=== PATIENT | male | born 1970 | race Caucasian/White ===

== ENCOUNTER 2016-08-01 16:24 | Emergency (ER) | payer SELFPAY ==
--- NOTE | 2016-08-01 16:29 | EDPHY ---
H & P Time Seen by Provider: 08/01/16 16:29 HPI/ROS: CHIEF COMPLAINT: Bleeding varicose vein on left ankle HISTORY OF PRESENT ILLNESS: Patient has a history of varicose veins and is visiting from [place]. He had a bleeding episode last night which stopped spontaneously. 30 minutes prior to arrival he had a traumatic bleeding again from the left ankle at the site of a varicose vein which he was unable to get stopped. EMS arrived and applied a pressure dressing which controlled the bleeding and brought the patient to the emergency department for further evaluation. REVIEW OF SYSTEMS: Eye: no change in vision ENT: no sore throat Cardiac: no chest pain or syncope Pulmonary: Little bit of a cough recently but no hemoptysis and not short of breath. Abdomen: no vomiting, diarrhea, abdominal pain. Chronic periumbilical hernia. Musculoskeletal: no back pain Skin: Chronic venous stasis changes in the left leg. Neuro: no headache Constitutional: no fever : no urinary symptoms A comprehensive 10 point review of systems is otherwise negative aside from elements mentioned in the history of present illness. PAST MEDICAL HISTORY: Includes atrial fibrillation, not anticoagulated. Denies , hypertension, umbilical hernia. Social history: Visiting from [place], occasional smoker. General Appearance: Alert and conversant, cooperative. Eyes: No scleral icterus. ENT, Mouth: Normal mucous membranes. Respiratory: Normal respiratory effort, breath sounds equal, lungs are clear to auscultation. Cardiovascular: Irregular, not tachycardic Gastrointestinal: Abdomen is soft and non tender. Umbilical hernia which is soft and easily reducible. Neurological: Alert and oriented x3. Normally conversant. Face symmetric, normal movement and sensation in all extremities. Skin: Venous stasis changes both lower extremities with a bleeding varicose vein on the left medial ankle. Musculoskeletal: Bilateral pedal edema which apparently is chronic. Psychiatric: Not agitated. Emergency Department course/MDM: Procedure: Bleeding varicose vein suturing Verbal consent was obtained from the patient. The bleeding site on the left ankle was anesthetized using 1% lidocaine without epinephrine. Site was cleaned prior with standard sterile technique and ChloraPrep. There were no deep structures involved. No tendon injury was identified. No foreign body found. The wound was repaired with [id number] 4 0 Prolene. The wound repair was simple. Excellent hemostasis was obtained. Wound care instructions were discussed and the patient was warned regarding scarring. The procedure was performed by myself. Tetanus updated. Constitutional: Initial Vital Signs Temperature (C) 36.7 C 08/01/16 16:24 Heart Rate 84 08/01/16 16:24 Respiratory Rate 20 08/01/16 16:24 Blood Pressure 140/101 H 08/01/16 16:24 O2 Sat (%) 93 08/01/16 16:24 O2 Delivery Mode Room Air Allergies/Adverse Reactions: Sulfa (Sulfonamide Antibiotics) Allergy (Verified 08/01/16 16:50) Home Medications: Medication Instructions Recorded Digoxin 08/01/16 Insulin Lispro 08/01/16 Lisinopril 08/01/16 Metoprolol Tartrate 08/01/16 SIMVASTATIN 08/01/16 metFORMIN HCL 08/01/16 Medical Decision Making - Data Points Medications Given: Discontinued Medications Diphtheria/Tetanus/Acell Pertussis (Boostrix) 0.5 ml IM .ONCE ONE Stop: 08/01/16 16:48 Last Admin: 08/01/16 16:57 Dose: 0.5 ml Departure - Departure Disposition: Home, Routine, Self-Care Clinical Impression: Bleeding from varicose vein Condition: Good Instructions: Laceration (ED) Additional Instructions: Wound Care Follow-Up: Removal of sutures in 10-14 days. Suture removal is complimentary in uncomplicated cases. Infection or abnormal findings would require reevaluation by the MD. In that case, you may be billed. Referrals: Irena Caraballo MD [Medical Doctor] - As per Instructions
[2016-08-01] MEDS ORDERED: TDAP ADULT 0.5 ML INJ (BOOSTRIX) IM ONE (16:47)
[2016-08-01 16:50] VITALS: BP 140/101; PULSE 84; RESP 20; TEMP 98.1; O2SAT 93
== END 2016-08-11 08:58 | disposition home or self-care (01) ==
PROC: 0HQLXZZ Repair Left Lower Leg Skin, External Approach (ICD-10-PCS; principal; 2016-08-01)
DX: I83.892 Varicose veins of left lower extremity with other complications (principal); Z23 Encounter for immunization; Z79.4 Long term (current) use of insulin

== ENCOUNTER 2017-11-26 06:00 | Day surgery (SDC) | payer MEDICAID ==
[2017-11-26] MEDS ORDERED: BENZOCAINE UNIT DOSE SPRAY HURRICAINE MM ONE (06:08)
[2017-11-26] MEDS ORDERED: MIDAZOLAM 2 MG/2 ML VIAL IVP ONE (06:08)
[2017-11-26] MEDS ORDERED: NS 500 ML IV ONE (06:08)
[2017-11-26] MEDS ORDERED: fentaNYL 100 MCG/2 ML INJ IVP ONE (06:08)
--- NOTE | 2017-11-26 07:31 | PDANEPAE ---
ANE Past Medical History - Pulmonary History Hx Oxygen in Use at Home: No Hx Sleep Apnea: No - Endocrine History Hx Diabetes: Yes ANE Review of Systems Review of Systems: ANE Patient History - Allergies Allergies/Adverse Reactions: Sulfa (Sulfonamide Antibiotics) Allergy (Verified 08/01/16 16:50) - Home Medications Home Medications: Digoxin 08/01/16 [Last Taken Unknown] Insulin Lispro 08/01/16 [Last Taken Unknown] Lisinopril 08/01/16 [Last Taken Unknown] Metoprolol Tartrate 08/01/16 [Last Taken Unknown] SIMVASTATIN 08/01/16 [Last Taken Unknown] metFORMIN HCL 08/01/16 [Last Taken Unknown] - Smoking Hx Smoking Status: Current every day smoker ANE Labs/Vital Signs - Vital Signs Height: 173 cm Weight: 127 kg ANE Physical Exam - Airway Neck exam: decreased ROM Mallampati Score: Class 3 Mouth exam: poor dentition - Pulmonary Pulmonary: no respiratory distress - Cardiovascular Cardiovascular: regular rate and rhythym - ASA Status ASA Status: III ANE Anesthesia Plan Total IV Anesthesia: Yes
[2017-11-26] MEDS ORDERED: PROPOFOL/EMULSION 500 MG/50 ML BOTTLE IV ONE (07:33)
[2017-11-26] MEDS ORDERED: LIDOCAINE 2% 100 MG/5 ML SYR ONE (07:34)
[2017-11-26] MEDS ORDERED: ATROPINE SULFATE 1 MG/10 ML SYR ONE (08:06)
--- NOTE | 2017-11-26 08:25 | PDHPUP ---
History & Physical Update H&P update statement: This history and physical update is based on an assessment of the patient which was completed after admission or registration (within 24 hours), but prior to the surgery/procedure. H&P update: H&P reviewed & patient examined, no change in patient's condition since H&P completed (I reviewed Dr. Palm's office note dated 11/04/2017)
[2017-11-26] MEDS ORDERED: PERFLUTREN LIPID MICROSPHERES 1.1 MG/ML VIAL IV ONE (08:44)
[2017-11-26] MEDS ORDERED: NALOXONE HCL 0.4 MG/ML INJ IVP PRN (09:07)
[2017-11-26] MEDS ORDERED: ALBUTEROL 3 ML DEYVIAL IH PRN (09:07)
--- NOTE | 2017-11-26 09:07 | POSTANESTH ---
Post Anesthetic Evaluation Cardiovascular Status: Similar to Pre-Op Cond Respiratory Status: Similar to Pre-op Cond. Level of Consciousness/Mental Status: Mildly Sleepy, Arousable Pain Control: Adequate, Prn Tx Ordered Nausea/Vomiting Control: Adequate, Prn Tx Ordered Complications Possibly Related to Anesthesia: None Noted
--- NOTE | 2017-11-26 16:48 | ECHO ---
[email or web address] [address] [address] Main: [phone] Fax: Transesophageal Echocardiography Name: TRACY CAMACHO MR#: [id number] Study Date: 11/26/2017 Study Time: 06:04 AM Date of : 1970 Age: 47 year(s) Height: ( ) Weight: ( ) BSA: Gender: Male Examination: DIANA Indication: Pre Watchman Procedure Image Quality: Adequate Contrast: Requested by: Kimberly Fernandez Heart Rate: Rhythm: BP: 132 mmHg/69 mmHg Procedure Staff Pen And Pencil Repairer: Niurka Salamanca [facility] Reading Physician: Kimberly Fernandez MD Requesting Provider: Anibal Palm DIANA Exam Details Patient Consent: Risks, alternatives of procedure explained to patient, informed consent obtained. Conclusions: Normal size left ventricle. Moderately reduced systolic LV function. The ejection fraction is estimated to be 35-40 %. Normal size right ventricle. Normal RV function. An agitated saline study was performed and was negative for intracardiac shunting. No thrombus in left appendage. Definity used to assess ROSEANN for thrombus. At 0 degrees the appendage measures 1.65 cm by 2.39 cm. At 46 degrees the appendage measures 1.86 cm by 1.42 cm. At 87 degrees the appendage measures 1.42 cm by 2.91 cm. At 134 degrees the appendage measures 1.51 cm by 2.08 cm. At 131 degrees the appendage measures 2.42 cm by 2.58 cm. At 112 degrees the appendage measures 1.54 cm by 2.63 cm. Mild mitral valve regurgitation is present. The aortic valve is normal in appearance and function. Tracy Telles has an elevated CHADS2-VASC score of 4 and is a poor candidate for residential anticoagulation therapy due to bleeding labile INRs and inability to afford NOAC therapy. He will be referred for a Watchman device in the [facility] structural heart clinic Measurements: Chambers Valvular Assessment AV/MV Valvular Assessment TV/PV Normal Normal Normal Name Value Range Name Value Range Name Value Range Patient: TRACY CAMACHO Study Date: 11/26/2017 Page 1 of 2 06:04 AM EF Range: 35-40 % Additional Measurements: Findings: Left Ventricle: Normal size left ventricle. No LV hypertrophy. Moderately reduced systolic LV function. The ejection fraction is estimated to be 35-40 %. No regional wall motion abnormality. Unable to assess diastolic dysfunction. Right Ventricle: Normal size right ventricle. Normal RV function. Left Atrium: The left atrium is normal in size. An agitated saline study was performed and was negative for intracardiac shunting. Left Atrial Appendage: Good color flow doppler in the left atrial appendage. No thrombus in left appendage. Definity used to assess ROSEANN for thrombus. At 0 degrees the appendage measures 1.65 cm by 2.39 cm. At 46 degrees the appendage measures 1.86 cm by 1.42 cm. At 87 degrees the appendage measures 1.42 cm by 2.91 cm. At 134 degrees the appendage measures 1.51 cm by 2.08 cm. At 131 degrees the appendage measures 2.42 cm by 2.58 cm. At 112 degrees the appendage measures 1.54 cm by 2.63 cm. Right Atrium: The right atrium is normal in size. Mitral Valve: The mitral valve is normal in appearance and function. Mild mitral valve regurgitation is present. No mitral stenosis is present. Aortic Valve: The aortic valve is normal in appearance and function. There is no significant aortic valve regurgitation. No aortic valve stenosis is present. Tricuspid Valve: The tricuspid valve is normal in appearance and function. Trivial tricuspid valve regurgitation. Pulmonic Valve: The pulmonic valve is normal in appearance and function. There is no pulmonic regurgitation seen. Aorta: The aorta is normal. Pericardium: No pericardial effusion. No pleural effusion. l1n (No Signature Object) Patient: TRACY CAMACHO Study Date: 11/26/2017 Page 2 of 2 06:04 AM [id number]
== END 2017-11-26 10:07 | disposition home or self-care (01) ==
LOC: FCATH 06:00
PROVIDERS: ATTEND Internal Medicine Cardiovascular Disease
DX: I48.91 Unspecified atrial fibrillation (principal); I10 Essential (primary) hypertension; G45.9 Transient cerebral ischemic attack, unspecified; E11.9 Type 2 diabetes mellitus without complications
CPT/HCPCS: J0461; J2001; J2704; J3010; Q9957

== ENCOUNTER 2018-04-06 00:12 | Emergency (ER) | payer MEDICAID ==
--- NOTE | 2018-04-06 00:16 | EDPHY ---
H & P Time Seen by Provider: 04/06/18 00:14 HPI/ROS: HPI CHIEF COMPLAINT: Bleeding from left ankle after kicking a vacuum HISTORY OF PRESENT ILLNESS: 47-year-old male, history of diabetes, obesity, varicose veins, presents emergency room with bleeding from his left lower extremity after kicked a vacuum. He states he got very frustrated and kicked it as it was not working. This caused him to have some bleeding from his medial ankle left lower extremity. Patient has a history of AFib, he refuses to take anticoagulation, patient is not on any blood thinners. Does take daily full-dose aspirin. Past Medical History: Diabetes, hypertension, varicose veins, obesity, AFib not on anticoagulation Past Surgical History: No recent surgery Social History: lives locally. Denies drugs alcohol tobacco. Family History: Noncontributory ROS REVIEW OF SYSTEMS: 10 Systems were reviewed and negative with the exception of the elements mentioned in the history of present illness. Exam Constitutional triage nursing summary reviewed, vital signs reviewed, awake/ alert. Eyes normal conjunctivae and sclera, EOMI, PERRLA. HENT normal inspection, atraumatic, moist mucus membranes, no epistaxis, neck supple/ no meningismus, no raccoon eyes. Respiratory clear to auscultation bilaterally, normal breath sounds, no respiratory distress, no wheezing. Cardiovascular rate normal, regular rhythm, no murmur, no edema, distal pulses normal. Gastrointestinal soft, non-tender, no rebound, no guarding, normal bowel sounds, no distension, no pulsatile mass. Genitourinary no CVA tenderness. Musculoskeletal left lower extremity: Chronic venous stasis large extremities, extensive venous stasis and varicose veins bilaterally, chronic pitting edema, chronic edema. no midline vertebral tenderness, full range of motion, no calf swelling, no tenderness of extremities, no meningismus, good pulses, neurovascularly intact. Skin pink, warm, & dry, no rash, skin atraumatic. Neurologic awake, alert and oriented x 3, AAOx3, moves all 4 extremities equally, motor intact, sensory intact, CN II-XII intact, normal cerebellar, normal vision, normal speech. Psychiatric normal mood/affect. Heme/Lymph/Immune no lymphadenopathy. Differential Diagnosis: Includes but is not limited to in a particular order bleeding from varicose vein, laceration with arterial injury. Medical Decision Making: Plan for this patient takedown dressing that was placed by EMS and explore the wound. Re-evaluation: Left leg: Medial aspect, very small punctate with a bleeding varicose vein. Direct pressure was applied however this did not stop the bleeding. Venous bleeding only. Surgicel was applied and direct pressure. Will re-evaluate shortly. 0141: Surgicel was applied to this lesion. Good hemostasis. No further bleeding. He has been monitored for over an hour after good hemostasis with no further breathing. Recommend rest and stays in place the next 24 hr. Patient understands return emergency room if he has recurrence of bleeding. Source: Patient, EMS - Medical/Surgical History Hx Asthma: No Hx Chronic Respiratory Disease: No Hx Diabetes: Yes Hx Cardiac Disease: Yes Hx Renal Disease: No Hx Cirrhosis: No Hx Alcoholism: No Hx HIV/AIDS: No Hx Splenectomy or Spleen Trauma: No Other PMH: DM II, HTN, hyperlipidemia, Afib, umbilical hernia, varicose veins - Social History Smoking Status: Current every day smoker Constitutional: Initial Vital Signs Temperature (C) 36.8 C 04/06/18 00:10 Heart Rate 77 04/06/18 00:10 Respiratory Rate 18 04/06/18 00:10 Blood Pressure 150/97 H 04/06/18 00:10 O2 Sat (%) 94 04/06/18 00:10 O2 Delivery Mode Room Air Allergies/Adverse Reactions: Sulfa (Sulfonamide Antibiotics) Allergy (Verified 08/01/16 16:50) Home Medications: Medication Instructions Recorded Digoxin 08/01/16 Insulin Lispro 08/01/16 Lisinopril 08/01/16 Metoprolol Tartrate 08/01/16 SIMVASTATIN 08/01/16 metFORMIN HCL 08/01/16 Medical Decision Making - Data Points Laboratory Results: Laboratory Results 04/06/18 00:10 04/06/18 00:10 04/06/18 04/06/18 00:10 00:10 WBC 15.52 10^3/uL H 10^3/uL (3.80-9.50) RBC 6.18 10^6/uL 10^6/uL (4.40-6.38) Hgb 19.0 g/dL H g/dL (13.7-17.5) Hct 56.2 % H % (40.0-51.0) MCV 90.9 fL fL (81.5-99.8) MCH 30.7 pg pg (27.9-34.1) MCHC 33.8 g/dL g/dL (32.4-36.7) RDW 12.5 % % (11.5-15.2) Plt Count 271 10^3/uL 10^3/uL (150-400) MPV 10.9 fL fL (8.7-11.7) Neut % (Auto) Not Reported Lymph % (Auto) Not Reported Mcminn % (Auto) Not Reported Eos % (Auto) Not Reported Baso % (Auto) Not Reported Nucleat RBC Rel Count Not Reported Absolute Neuts (auto) Not Reported Absolute Lymphs (auto) Not Reported Absolute Monos (auto) Not Reported Absolute Eos (auto) Not Reported Absolute Basos (auto) Not Reported Absolute Nucleated RBC Not Reported Immature Gran % Not Reported Seg Neutrophils % 66.3 % % Band Neutrophils % 0.0 % % Lymphocytes % 21.4 % % Monocytes % 7.2 % % Eosinophils % 2.0 % % Basophils % 3.1 % % Metamyelocytes % 0.0 % % Myelocytes % 0.0 % % Promyelocytes % 0.0 % % Blast Cells % 0.0 % % Immature Gran # Not Reported Absolute Seg Neuts 10.29 10^/uL H 10^/uL (1.70-6.50) Absolute Band Neuts 0.00 10^3/uL 10^3/uL (0.00-0.70) Absolute Lymphocytes 3.32 10^3/uL H 10^3/uL (1.00-3.00) Absolute Monocytes 1.12 10^3/uL H 10^3/uL (0.30-0.80) Absolute Eosinophils 0.31 10^3/uL 10^3/uL (0.03-0.40) Absolute Basophils 0.48 10^3/uL H 10^3/uL (0.02-0.10) Absolute Metamyelocyte 0.00 10^3/mL 10^3/mL (0.00-0.00) Absolute Myelocytes 0.00 10^3/mL 10^3/mL (0.00-0.00) Absolute Promyelocytes 0.00 10^3/uL 10^3/uL (0.00-0.00) Absolute Plasma Cells 0.00 10^3/uL 10^3/uL (0.00-0.00) Nucleated RBCs 0 /100 WBC /100 WBC (0-0) RBC/WBC/PLT Morphology NORMAL (NORMAL) Absolute Blast Cells 0.00 10^3/uL 10^3/uL (0.00-0.00) Plasma Cells % 0.0 % % Platelet Estimate ADEQUATE (ADEQ) Sodium 138 mEq/L mEq/L (135-145) Potassium 5.0 mEq/L mEq/L (3.3-5.0) Chloride 99 mEq/L mEq/L (97-110) Carbon Dioxide 24 mEq/l mEq/l (22-31) Anion Gap 15 mEq/L mEq/L (8-16) BUN 18 mg/dL mg/dL (7-23) Creatinine 1.2 mg/dL mg/dL (0.7-1.3) Estimated GFR > 60 Glucose 182 mg/dL H mg/dL (70-100) Calcium 10.0 mg/dL mg/dL (8.5-10.4) Departure - Departure Disposition: Home, Routine, Self-Care Clinical Impression: Bleeding from varicose vein Condition: Good Instructions: Bleeding Disorders (ED) Additional Instructions: 1. Return to the emergency room if your recurrence of bleeding. Referrals: Patient,NotPresent [Unknown] - As per Instructions
[2018-04-06 00:35] LABS: PLATELET COUNT 271 10^3/uL (150-400)
[2018-04-06 01:52] VITALS: BP 147/105
== END 2018-04-06 02:02 | disposition home or self-care (01) ==
LOC: EDUNIT#
DX: I83.92 Asymptomatic varicose veins of left lower extremity (principal); E11.9 Type 2 diabetes mellitus without complications; I10 Essential (primary) hypertension; E66.9 Obesity, unspecified; F17.200 Nicotine dependence, unspecified, uncomplicated